=== PATIENT | female | born 1995 | race Caucasian/White ===

== ENCOUNTER → 2019-10-17 | Outpatient (CLI) | payer OTHER ==
--- NOTE | 2019-10-17 10:48 | Diagnostic Imaging Report ---
INDICATION: Right lower extremity edema and pain. COMPARISON: None. TECHNIQUE: Duplex, browning-scale and color-flow imaging of the right lower extremity venous system was performed. FINDINGS: The common femoral vein, superficial femoral vein, profunda femoris, and popliteal veins are normal. These vessels show normal compressibility, color flow, and doppler augmentation. The deep calf veins, although not very well seen, demonstrate no distinct intraluminal thrombus. Small amount of edema is noted involving the medial ankle and the patient's area of pain. IMPRESSION: 1. No evidence of DVT of the right lower extremity. 2. Mild edema of the medial ankle. Dictated by: Dictated on workstation # [id number]
== END ==
LOC: RAD 09:22
PROVIDERS: ATTEND Nurse Practitioner Family
DX: M79.661 Pain in right lower leg (principal); R60.9 Edema, unspecified